=== PATIENT | female | born 1965 | race Caucasian/White ===

== ENCOUNTER → 2017-02-07 | Outpatient (CLI) | payer BC ==
--- NOTE | 2017-02-12 11:00 | MM ---
Reason for exam: screening (asymptomatic). Last mammogram was performed 1 year and 2 months ago. History: Taking unspecified hormones for 5 years beginning at age 35. Physical Findings: A clinical breast exam by your physician is recommended on an annual basis and results should be correlated with mammographic findings. MG Screening Mammo w CAD Bilateral CC and MLO view(s) were taken. Prior study comparison: December 01, 2015, bilateral MG screening mammo w CAD. October 07, 2014, bilateral MG screening mammo w CAD. There are scattered fibroglandular densities. There is no discrete abnormality. No significant changes when compared with prior studies. ASSESSMENT: Negative, BI-RAD 1 RECOMMENDATION: Routine screening mammogram of both breasts in 1 year.
== END | disposition home or self-care (01) ==
LOC: RADMAMWWP 07:35
PROVIDERS: ATTEND Family Medicine
DX: Z12.31 Encounter for screening mammogram for malignant neoplasm of breast (principal)

== ENCOUNTER 2017-03-16 09:23 | Day surgery (SDC) | payer BC ==
[2017-03-15 08:24] VITALS: BMI 28.3
[~2017-03-16 09:23] MED LIST: LACTATED RINGERS 1,000 ML IV SCH; LIDOCAINE 1% 20 ML VIAL (10MG/ML) FOR IV START INTRADERMA PRN
[2017-03-16 09:59] VITALS: RESP 16; TEMP 98.3
[2017-03-16] MEDS ORDERED: PROPOFOL 10 MG/ML 50 ML VIAL IV ONE (10:37)
[2017-03-16] MEDS ORDERED: MIDAZOLAM 2 MG/2 ML VIAL ONE (10:37)
[2017-03-16] MEDS ORDERED: fentaNYL (PF) 50 MCG/ML 2 ML AMP ONE (10:37)
--- NOTE | 2017-03-16 10:56 | P.PCN ---
Date of Procedure: 03/16/17 Procedure(s) Performed: BRIEF HISTORY: Patient is a 51-year-old pleasant white female, scheduled for an elective colonoscopy as a part of screening for colorectal neoplasia. PROCEDURE PERFORMED: Colonoscopy with snare polypectomy. PREOPERATIVE DIAGNOSIS: Screening for colon cancer. IV sedation per Anesthesia. PROCEDURE: After informed consent was obtained, the patient, was brought into the endoscopy unit. IV sedation was administered by Anesthesia under continuous monitoring. Digital rectal examination was normal. Initially the Olympus CF- 160 flexible video colonoscope was then inserted in the rectum, gradually advanced into the cecum without any difficulty. Careful examination was performed as the scope was gradually being withdrawn. Ileocecal valve and the appendiceal orifice were visualized and appeared normal. Prep was excellent. Mucosa of the cecum, ascending colon, transverse colon, descending colon, sigmoid colon, and rectum appeared normal. In the rectal sigmoid colon there was a 7-8 mm polyp that was removed by snare polypectomy. Scattered sigmoid diverticulosis seen. Retroflexion was performed in the rectum and no lesions were seen. The patient tolerated the procedure well. IMPRESSION: 7-8 mm rectosigmoid polyp status post snare polypectomy. Scattered sigmoid diverticulosis. RECOMMENDATIONS: Findings of this examination were discussed with the patient as well as her family. She was advised to follow with the biopsy results. If the biopsy shows a tubular adenoma she can have a repeat colonoscopy in 5 years
[2017-03-16 11:15] VITALS: BP 127/89; PULSE 68
== END 2017-03-16 11:51 | disposition home or self-care (01) ==
LOC: ORWHC2ENDO 09:23
PROVIDERS: ATTEND Internal Medicine Gastroenterology
DX: Z12.11 Encounter for screening for malignant neoplasm of colon (principal); D12.7 Benign neoplasm of rectosigmoid junction; K57.30 Diverticulosis of large intestine without perforation or abscess without bleeding; E07.9 Disorder of thyroid, unspecified; Z72.0 Tobacco use; Z79.899 Other long term (current) drug therapy; Z88.0 Allergy status to penicillin
CPT/HCPCS: 81025; 88305; 45385; J2250; J3010; J2704

== ENCOUNTER → 2018-07-09 | Outpatient (CLI) | payer BC ==
--- NOTE | 2018-07-10 12:50 | MM ---
Reason for exam: screening (asymptomatic). Last mammogram was performed 1 year and 5 months ago. History: Family history of breast cancer in maternal aunt at age 60. Taking unspecified hormones for 5 years beginning at age 35. Physical Findings: A clinical breast exam by your physician is recommended on an annual basis and results should be correlated with mammographic findings. MG 3D Screening Mammo W/Cad Bilateral CC and MLO view(s) were taken. Prior study comparison: February 07, 2017, bilateral MG screening mammo w CAD. December 01, 2015, bilateral MG screening mammo w CAD. There are scattered fibroglandular densities. Stable benign calcifications. There is no discrete abnormality. No significant changes when compared with prior studies. ASSESSMENT: Benign, BI-RAD 2 RECOMMENDATION: Routine screening mammogram of both breasts in 1 year.
== END | disposition home or self-care (01) ==
LOC: RADMAMWWP 08:53
PROVIDERS: ATTEND Family Medicine
DX: Z12.31 Encounter for screening mammogram for malignant neoplasm of breast (principal)
CPT/HCPCS: 77063; 77067

== ENCOUNTER → 2019-07-23 | Outpatient (CLI) | payer BC ==
--- NOTE | 2019-07-23 14:16 | MM ---
Reason for exam: screening (asymptomatic). Last mammogram was performed 1 year ago. History: Patient is postmenopausal. Family history of breast cancer in maternal aunt at age 60. Taking unspecified hormones for 5 years beginning at age 35. Physical Findings: A clinical breast exam by your physician is recommended on an annual basis and results should be correlated with mammographic findings. MG Screening Mammo w CAD Bilateral CC and MLO view(s) were taken. Prior study comparison: July 09, 2018, bilateral MG 3d screening mammo w/cad. February 07, 2017, bilateral MG screening mammo w CAD. There are scattered fibroglandular densities. No significant changes when compared with prior studies. ASSESSMENT: Negative, BI-RAD 1 RECOMMENDATION: Routine screening mammogram of both breasts in 1 year.
== END | disposition home or self-care (01) ==
LOC: RADMAMWWP 07:22
PROVIDERS: ATTEND Family Medicine
DX: Z12.31 Encounter for screening mammogram for malignant neoplasm of breast (principal)
CPT/HCPCS: 77067

== ENCOUNTER 2023-10-18 19:51 | Outpatient (CLI) | payer BC ==
--- NOTE | 2023-10-25 12:08 | P.PCN ---
Description of Procedure: CLINICAL: Titration with positive air pressure has been done for correction of respiratory abnormalities during sleep. DESCRIPTION OF PROCEDURE: The standard montage for clinical polysomnography included the electroencephalogram, the electrocardiogram, the mentalis surface electromyography and Lead II cardiography. The respiratory battery consisted of measurements of nasal /buccal air flow, pressure transducer measurements from the nose, thoracic and /or abdominal effort and intercostal surface electromyography. Video monitoring has been done to check for any parasomnia events. Nocturnal oxyhemoglobin saturations were obtained by finger oximetry. Step-cerda titration with positive airway pressure was utilized to control respiratory events. Raw data of sleep recording has been reviewed and is adequate. RESULTS: Sleep efficiency was decreased to 79.1 %. Latency to sleep onset was prolonged to 37.0 minutes.]. Sleep architecture showed stage N1 was significantly increased to 19.3 %, Delta sleep was borderline 5.1 %, REM sleep was normal 21.4 %. Heart rate was minimum 58 BPM, maximum 72 BPM, average 63 BPM. EMG showed 0 periodic limb movements per hour. PAP titration have been done with CPAP up to the pressure 13 cm H2O. Patient had problems with CPAP, switched to BPAP. BPAP titrated up to 15/11 cm H2O. The best results were at the pressure 14/10 cm H2O. Apnea hypopnea index reduced to 5.6. IMPRESSION: 1. Obstructive sleep apnea hypopnea syndrome mostly on controle with BPAP treatment. 2. No significant periodic limb movements have been documented. Please see other impressions from consultation. PLAN: 1. The patient will have treatment with positive air pressure equipment with the level of pressure AutoBPAP with maximal inspiratory pressure 18, minimal expiratory pressure 7, pressure-support 4 cm H2O and should use it every night for the whole night. 2. Watching and losing weight. 3. Sleep hygiene with regular time in bed for at least 8 hours. 4. No driving if feeling any sleepiness. 5. I will see the patient for follow up visit to explain the results of the test, recommendations, check compliance with treatment and make any necessary adjustment related to mask fitting, pressure and humidification. Thank you very much for allowing me to participate in the management of your patient. Sincerely, Tristan Marte MD, PhD, FAASM Diplomat of [employer] Sleep Medicine Board of [place] [employer]er [employer] [facility] [place]
== END 2023-10-19 05:35 | disposition home or self-care (01) ==
LOC: 3 N SLEEP 19:51
PROVIDERS: ATTEND Internal Medicine
DX: G47.33 Obstructive sleep apnea (adult) (pediatric) (principal); F17.200 Nicotine dependence, unspecified, uncomplicated; Z88.0 Allergy status to penicillin
CPT/HCPCS: 95811

== ENCOUNTER 2023-12-21 05:59 | Day surgery (SDC) | payer BC ==
[~2023-12-21 05:59] MED LIST changes: -LIDOCAINE 1% 20 ML VIAL (10MG/ML) FOR IV START INTRADERMA PRN
[2023-12-21 06:54] LABS: Glucose,Whole Blood 91 mg/dL (70-110)
[2023-12-21] MEDS: HYDROCORTISONE SUCCINATE 100 MG/2 ML VIAL IVP ONE (06:58)
[2023-12-21 06:59] VITALS: RESP 20; TEMP 97.4
[2023-12-21] MEDS: LACTATED RINGERS 1,000 ML IV ONE (06:59)
[2023-12-21] MEDS ORDERED: PROPOFOL 10 MG/ML 20 ML VIAL IV ONE (06:59)
[2023-12-21] MEDS ORDERED: LIDOCAINE 1% INJ 10MG/ML (20 ML MDV) ONE (06:59)
--- NOTE | 2023-12-21 07:22 | P.PCN ---
Date of Procedure: 12/21/23 Procedure(s) Performed: BRIEF HISTORY: Patient is a 58-year-old pleasant white female scheduled for an elective colonoscopy as a part of evaluation of prior history of colon polyps. Last endoscopy was 6 years ago. PROCEDURE PERFORMED: Colonoscopy. PREOPERATIVE DIAGNOSIS: History of colon polyps. IV sedation per Anesthesia. PROCEDURE: After informed consent was obtained, the patient, was brought into the endoscopy unit. IV sedation was administered by Anesthesia under continuous monitoring. Digital rectal examination was normal. Initially the Olympus CF-160 flexible video colonoscope was then inserted in the rectum, gradually advanced into the cecum without any difficulty. Careful examination was performed as the scope was gradually being withdrawn. Ileocecal valve and the appendiceal orifice were visualized and appeared normal. Prep was excellent. Mucosa of the cecum, ascending colon, transverse colon, descending colon, sigmoid colon, and rectum appeared normal. Retroflexion was performed in the rectum and no lesions were seen. The patient tolerated the procedure well. IMPRESSION: Normal-appearing colon from rectum to cecum no evidence of colorectal neoplasia . RECOMMENDATIONS: Findings of this examination were discussed with the patient as well as a family. She was advised to have a repeat screening colonoscopy in 10 years..
[2023-12-21 08:29] VITALS: BP 140/89; PULSE 66
== END 2023-12-21 08:07 | disposition home or self-care (01) ==
LOC: ORWHC2ENDO 05:59
PROVIDERS: ATTEND Internal Medicine Gastroenterology
DX: Z12.11 Encounter for screening for malignant neoplasm of colon (principal); I10 Essential (primary) hypertension; E07.9 Disorder of thyroid, unspecified; Z86.010 Personal history of colon polyps; Z79.890 Hormone replacement therapy; Z79.899 Other long term (current) drug therapy; Z88.0 Allergy status to penicillin; Z88.2 Allergy status to sulfonamides
CPT/HCPCS: 45378; J1720; J2001; J2704

== ENCOUNTER → 2024-01-10 | Outpatient (CLI) | payer BC ==
[2024-01-10 16:33] VITALS: BP 124/78; PULSE 74; RESP 16; TEMP 97.9
--- NOTE | 2024-01-10 17:58 | P.PN ---
Subjective DATE: 01/10/2024 FOLLOW UP VISIT. Patient with obstructive sleep apnea hypopnea syndrome return to sleep center for follow-up visit. Recently patient had sleep study which documented obstructive sleep apnea hypopnea syndrome. Patient was initiated on PAP therapy and today is first visit after treatment was started. Patient was able to use PAP equipment every night for the whole night. The patient does not have significant problems with the mask, BPAP pressure and humidification. [place] sleepiness scale is 5, which is normal.. I checked information from PAP unit. PAP unit pressure maximal inspiratory pressure 18, minimal expiratory pressure 7, pressure-support 4, average pressure 14.9 over 10.9 cm H2O. Usage is 100 % for more then 4 hours, average 7.2 hours per night. Leak is 20 l/m, which is in acceptable range. Apnea Hypopnea Index is 6.9, which is minimally increased. MEDICATIONS:1. Levothyroxine 150 g once a day 2. Lisinopril 20 mg once a day During physical exam: GENERAL: A pleasant patient without any distress. VITAL SIGNS: BP 124/78, HR 74, RR 16 , weight 275, temperature 97.9, oxygen saturation at room air 98% . HEENT: PERRLA, EOMI.low position of soft palate, Mallapati 4 . NECK: Supple. No JVD. LUNGS: Clear to percussion and to auscultation. Good air exchange. No wheezing or rhonchi. HEART: S1, S2 regular. ABDOMEN: Soft and nontender.[] EXTREMITIES: No clubbing or cyanosis. CHEMISTRY LECTURER: Awake, alert, and oriented x3. No focal deficit. Impressions: 1. Obstructive sleep apnea-hypopnea syndrome in severe range, apnea-hypopnea index during diagnostic sleep study 41.4. Patient demonstrated great compliance with treatment, benefiting from treatment. 2. Hypertension. 3. Obesity. 4. Hypothyroidism. 5. Status post tonsillectomy. 6. Status post L5-S1 discectomy. Plan: 1. Continue using PAP equipment every night for the whole night. I increased range over the pressure to maximal inspiratory pressure 19 cm of water, other parameters will be the same. 2. To change air filter at least 1-2 times per month. 3. PAP unit should stay lower then position of the head. 4. Advised patient to remove all remaining water from humidifier canister daily and make it dry after each usage. Refill canister with fresh distilled water before each usage. 5. Sleep hygiene with regular time in bed for at least 8 hours. 6. Precautions related to driving. No driving if feel any sleepiness. 7. I will maintain prescription for PAP supplies including mask, tube, filters. 8. Follow up visit in 6 months or earlier if patient has any problems. 9. Watching and losing weight. Thank you very much for allowing me to participate in the management of your patient. Tristan Marte MD, PhD, FAASM. Diplomat of [place] [employer], Sleep Medicine Board by [place] [employer] Electric Furnace Operator of [facility] [place] Objective - Vital Signs Vital signs: Vital Signs Temp 97.9 F 01/10/24 16:31 Pulse 74 01/10/24 16:31 Resp 16 01/10/24 16:31 BP 124/78 01/10/24 16:31 Pulse Ox 98 01/10/24 16:31 FiO2
== END ==
LOC: 3 N SLEEP 16:21
PROVIDERS: ATTEND Internal Medicine
DX: G47.33 Obstructive sleep apnea (adult) (pediatric) (principal); I10 Essential (primary) hypertension; E66.9 Obesity, unspecified; E03.9 Hypothyroidism, unspecified; F17.200 Nicotine dependence, unspecified, uncomplicated; Z79.890 Hormone replacement therapy; Z79.899 Other long term (current) drug therapy; Z99.89 Dependence on other enabling machines and devices; Z98.890 Other specified postprocedural states; Z90.89 Acquired absence of other organs; Z88.0 Allergy status to penicillin; Z88.2 Allergy status to sulfonamides; Z79.82 Long term (current) use of aspirin

== ENCOUNTER → 2024-10-23 | Outpatient (CLI) | payer OTHER ==
[2024-10-23 16:33] VITALS: BP 150/76; PULSE 64; RESP 16; TEMP 97.9
--- NOTE | 2024-10-23 17:04 | P.PROGSL ---
Subjective DATE: 10/23/2024 FOLLOW UP VISIT. Patient with obstructive sleep apnea hypopnea syndrome return to sleep center for follow-up visit. Information from previous visit have been reviewed. Patient is using PAP equipment every night for the whole night, getting PAP supplies in time. The patient does not have significant problems with the mask, PAP unit and humidification. [place] sleepiness scale is slightly increased to 11. I checked information from PAP unit. PAP unit pressure maximal inspiratory pressure 19, minimal expiratory pressure 7, pressure support 4, average pressure 15.1/11.1 cm H2O. Usage is 100% for more then 4 hours, average 6.6 hours per night. Leak is 14 l/m, which is in acceptable range. Apnea Hypopnea Index is 3.0, which is normal. MEDICATIONS have been reviewed, please see below. During physical exam: GENERAL: A pleasant patient without any distress. VITAL SIGNS: Please see below, weight is 282 lbs. HEENT: PERRLA, EOMI.low position of soft palate, Mallapati 4 . NECK: Supple. No JVD. LUNGS: Clear to percussion and to auscultation. Good air exchange. No wheezing or rhonchi. HEART: S1, S2 regular. ABDOMEN: Soft and nontender.[] EXTREMITIES: No clubbing or cyanosis. COOK FISH EGGS: Awake, alert, and oriented x3. No focal deficit. Impressions: 1. Obstructive sleep apnea-hypopnea syndrome. Patient demonstrated great compliance with treatment, benefiting from treatment. 2. Hypertension. 3. Hypothyroidism. 4. Obesity, BMI 42.8, patient increased weight on 7 pounds comparing with previous visit. 5. Status post L5-S1 discectomy. 6. Status post tonsillectomy. Plan: 1. Continue using PAP equipment every night for the whole night. 2. Sleep hygiene with regular time in bed for at least 7.5-8 hours 3. PAP unit should stay lower then position of the head. 4. Advised patient to remove all remaining water from humidifier canister daily and make it dry after each usage. Refill canister with fresh distilled water before each usage. 5. Watching weight. 6. Precautions related to driving. No driving if feel any sleepiness. 7. I will maintain prescription for PAP supplies including mask, tube, filters. 8. Follow up visit in 8 months or earlier if patient has any problems. Thank you very much for allowing me to participate in the management of your patient. Tristan Marte MD, PhD, FAASM. Diplomat of [place] [employer], Sleep Medicine Board by [employer] Club Waiter/Waitress of [facility] [place] Objective - Vital Signs Vital Signs: Vital Signs Temp 97.9 F 10/23/24 16:31 Pulse 64 10/23/24 16:31 Resp 16 10/23/24 16:31 BP 150/76 10/23/24 16:31 Pulse Ox 99 10/23/24 16:31 FiO2 Intake & Output 10/22/24 10/23/24 10/23/24 18:59 06:59 18:59 Weight 282 kg Home Medications: Home Medications Medication Instructions Recorded Confirmed Type Aspirin 81 mg PO DAILY 12/19/23 12/19/23 History Ibuprofen [Motrin Ib] 200 mg PO DIRECTED PRN 12/19/23 12/19/23 History Levothyroxine Sodium 150 mcg PO DAILY 12/19/23 10/23/24 History Lisinopril-Hctz 20-25 mg 1 tab PO DAILY 12/19/23 10/23/24 History [Zestoretic 20-25] Unk Fish Oil 1 tab PO DAILY 12/19/23 12/19/23 History Unk Multi Vitamin 1 tab PO DAILY 12/19/23 12/19/23 History
== END ==
LOC: 3 N SLEEP 15:35
PROVIDERS: ATTEND Internal Medicine
DX: G47.33 Obstructive sleep apnea (adult) (pediatric) (principal); I10 Essential (primary) hypertension; E03.9 Hypothyroidism, unspecified; E66.9 Obesity, unspecified; Z68.41 Body mass index [BMI] 40.0-44.9, adult; Z98.890 Other specified postprocedural states; Z90.89 Acquired absence of other organs; Z88.0 Allergy status to penicillin; Z88.2 Allergy status to sulfonamides; F17.210 Nicotine dependence, cigarettes, uncomplicated
CPT/HCPCS: 99212

== ENCOUNTER → 2025-06-12 | Outpatient (CLI) | payer OTHER ==
--- NOTE | 2025-06-12 17:57 | P.PROGSL ---
Subjective DATE: 06/12/2025 FOLLOW UP VISIT. Patient with obstructive sleep apnea hypopnea syndrome return to sleep center for follow-up visit. Information from previous visit have been reviewed. Patient is using PAP equipment every night for the whole night, getting PAP supplies in time. Recently during travel while in airport BiPAP unit was lost or stolen. Subsequently patient was not able to use treatment for about 1 months. [place] Sleepiness Scale significantly increased to 19. MEDICATIONS: Levothyroxine 112 mcg once a day, lisinoprilhydrochlorothiazide 20-25 mg once a day. During physical exam: GENERAL: A pleasant patient without any distress. VITAL SIGNS: BP 134/87, HR 71, RR 16, temperature 98.1, oxygen saturation room air 96%, weight 285.8 pounds, BMI 43.4. HEENT: PERRLA, EOMI.low position of soft palate, Mallapati 4 . NECK: Supple. No JVD. LUNGS: Clear to percussion and to auscultation. Good air exchange. No wheezing or rhonchi. HEART: S1, S2 regular. ABDOMEN: Soft and nontender. Obese EXTREMITIES: No clubbing or cyanosis. OTR OWNER OPERATOR: Awake, alert, and oriented x3. No focal deficit. Impressions: 1. Obstructive sleep apnea-hypopnea syndrome. BiPAP unit was lost or possibly stolen in airport about 1 months ago. 2. Obesity, BMI 43.4. 3. Hypertension. 4. Hypothyroidism. 5. Status post L5-S1 discectomy. 6. Status post tonsillectomy. Plan: 1. Prescription for BiPAP unit with maximal inspiratory pressure 19, minimal expiratory pressure 7, pressure support 4. Patient should continue using PAP equipment every night for the whole night. 2. Sleep hygiene with regular time in bed for at least 7.5-8 hours 3. PAP unit should stay lower then position of the head. 4. Advised patient to remove all remaining water from humidifier canister daily and make it dry after each usage. Refill canister with fresh distilled water before each usage. 5. Watching and losing weight. 6. Precautions related to driving. No driving if feel any sleepiness. 7. I will maintain prescription for PAP supplies including mask, tube, filters. 8. Follow up visit in 1-3 months after patient received new BiPAP unit to document compliance with treatment. Thank you very much for allowing me to participate in the management of your patient. Tristan Marte MD, PhD, FAASM. Diplomat of [place] [employer], Sleep Medicine Board by [employer] Medicine Faculty Physician of [facility] [place] Objective Home Medications: Home Medications Medication Instructions Recorded Confirmed Type Aspirin 81 mg PO DAILY 12/19/23 12/19/23 History Ibuprofen [Motrin Ib] 200 mg PO DIRECTED PRN 12/19/23 12/19/23 History Levothyroxine Sodium 150 mcg PO DAILY 12/19/23 10/23/24 History Lisinopril-Hctz 20-25 mg 1 tab PO DAILY 12/19/23 10/23/24 History [Zestoretic 20-25] Unk Fish Oil 1 tab PO DAILY 12/19/23 12/19/23 History Unk Multi Vitamin 1 tab PO DAILY 12/19/23 12/19/23 History
== END ==
LOC: 3 N SLEEP 16:27
PROVIDERS: ATTEND Internal Medicine
CPT/HCPCS: 99212